=== PATIENT | female | born 1965 | race Caucasian/White ===

== ENCOUNTER 2016-09-26 08:27 | Day surgery (SDC) | payer OTHER ==
[~2016-09-26] VITALS: Ht 170.2 cm; Wt 81.0 kg
[2016-09-26] VITALS (10 sets, daily range): BP systolic 112–148; BP diastolic 62–81; PULSE 64–100; RESP 9–26; Ht 170.2 cm; Wt 81.0 kg
[~2016-09-26 08:27] MED LIST: LIDOCAINE 2% (SDV) 5 ML INJ ONE
[2016-09-26] MEDS ORDERED: CEFAZOLIN 1 GM/50 ML (PMX) 50 ML IVPB ONE (10:00)
[2016-09-26] MEDS ORDERED: SOD CHLORIDE 0.9% 1,000 ML IV ONE (10:00)
[2016-09-26 10:10] LABS: ADD SCAN DIFF NO
[2016-09-26 10:13] LABS: BASOPHILS % 0.9 % (0.0-2.0); EOSINOPHILS # 0.1 10^3/ul (0.0-0.5); EOSINOPHILS % 1.9 % (0.0-7.0); HEMATOCRIT 37.8 % (37.0-47.0); HEMOGLOBIN 12.3 g/dl (12.0-16.0); LYMPHOCYTES # 1.8 10^3/ul (0.8-2.9); LYMPHOCYTES % 42.5 % (15.0-51.0); MEAN CORPUSCULAR HGB CONC 32.5 g/dl (32.0-37.0); MEAN CORPUSCULAR VOLUME 89.2 fl (82.0-101.0); MEAN PLATELET VOLUME 12.6 fl (7.4-10.4); MONOCYTE # 0.3 10^3/ul (0.3-0.9); NEUTROPHIL # 2.1 10^3/ul (1.6-7.5); NEUTROPHILS % 47.5 % (39.0-77.0); PLATELET COUNT 232 10^3/UL (140-415); RED BLOOD COUNT 4.24 10^6/ul (4.20-5.40); RED CELL DISTRIBUTION WIDTH 13.4 % (11.5-14.5); WHITE BLOOD COUNT 4.3 10^3/ul (4.8-10.8)
[2016-09-26 10:18] LABS: INR 0.9; PROTIME 12.1 Sec (12.2-14.2); PT RATIO 0.9
[2016-09-26 10:22] LABS: BILIRUBIN,INDIRECT 0.2 mg/dl (0-1.1); BILIRUBIN,TOTAL 0.2 mg/dl (0.2-1.3)
[2016-09-26 10:23] LABS: ALBUMIN 4.9 g/dl (3.3-4.9); ALBUMIN/GLOBULIN RATIO 1.75; TOTAL PROTEIN 7.7 g/dl (6.1-8.1)
[2016-09-26 10:24] LABS: CALCIUM 9.4 mg/dl (8.4-10.2); CREATININE 0.62 mg/dl (0.44-1.00); POTASSIUM 4.1 mmol/L (3.5-5.1)
[2016-09-26] MEDS ORDERED: BUPIVACAINE 0.5%/EPI (SDV) 10 ML INJ ONE (11:08)
[2016-09-26] MEDS ORDERED: MIDAZOLAM 1 MG/ML 2 ML INJ ONE (11:16)
[2016-09-26] MEDS ORDERED: NEOSTIGMINE 3 MG/3 ML SYRINGE ONE (11:16)
[2016-09-26] MEDS ORDERED: ROCURONIUM 50 MG INJ ONE (11:16)
[2016-09-26] MEDS ORDERED: GLYCOPYRROLATE 0.4 MG INJ ONE (11:16)
[2016-09-26] MEDS ORDERED: PROPOFOL 20 ML ONE (11:16)
[2016-09-26] MEDS ORDERED: CEFAZOLIN 1 GM INJ ONE (11:16)
[2016-09-26] MEDS ORDERED: FENTAnyl 50 MCG/ML VIAL ONE (11:16)
[2016-09-26] MEDS ORDERED: DEXAMETHASONE 4 MG/ML 1 ML INJ ONE (11:17)
[2016-09-26] MEDS ORDERED: ONDANSETRON 4 MG INJ ONE (11:17)
[2016-09-26] MEDS ORDERED: SUGAMMADEX SODIUM 200 MG/2 ML VIAL IV ONE (11:55)
[2016-09-26] MEDS ORDERED: FENTAnyl 50 MCG/ML VIAL IV PRN ×3 (12:00)
[2016-09-26] MEDS ORDERED: MIDAZOLAM 1 MG/ML 2 ML INJ IV PRN (12:00)
[2016-09-26] MEDS ORDERED: EPHEDrine SULFATE 50 MG/5 ML SYG IV PRN (12:00)
[2016-09-26] MEDS ORDERED: MEPERIDINE 25 MG INJ IV PRN (12:00)
[2016-09-26] MEDS ORDERED: DIPHENHYDRAMINE 50 MG INJ IV PRN (12:00)
[2016-09-26] MEDS ORDERED: TRIMETHOBENZAMIDE 100 MG/ML VIAL IM PRN (12:00)
[2016-09-26] MEDS ORDERED: ONDANSETRON 4 MG INJ IV PRN (12:00)
[2016-09-26] MEDS ORDERED: HYDROmorphONE (0.2 MG/ML) 10ML SYG IV PRN ×3 (12:00)
[2016-09-26] MEDS ORDERED: hydrALAzine 20 MG INJ IV PRN (12:00)
[2016-09-26] MEDS ORDERED: LABETALOL HCL 20MG INJ IV PRN (12:00)
--- NOTE | 2016-09-26 12:25 | OPR ---
DATE OF OPERATION: 09/26/2016 PREOPERATIVE DIAGNOSIS: Malignant melanoma, left shoulder. POSTOPERATIVE DIAGNOSIS: Malignant melanoma, left shoulder. OPERATION PERFORMED: Wide local excision of malignant melanoma left shoulder with local skin flap a dvancement closure. ANESTHESIA: General. ANESTHESIOLOGIST: Dr. Sheehan. SURGEON: Boby Corral MD LIBRARY ATTENDANT: Eileen Nicholson MD INDICATIONS FOR PROCEDURE: The patient is a 51-year-old female who underwent a punch biopsy of a siddiqui spicious lesion on her left shoulder by her movie extra. The diagnosis of malignant melanoma was made with positive margins. She was sent for a surgical oncology referral. She was counseled as to the need for wide local excision with local skin flap advancement closure. She consented and was s cheduled for surgery. DESCRIPTION OF PROCEDURE: The patient was brought to the operating theater, placed under general an esthesia. The left shoulder was prepped and draped in the usual sterile fashion. A long elliptical incision was demarcated with marking pen, oriented in an oblique fashion to include an approximatel y 1 cm margin circumferentially around the lesion, then carried out with 15 blade scalpel. Subcutan eous tissue was dissected with cautery. The specimen was then elevated and transected including por tions of the subcutaneous tissue. It was then oriented and sent for permanent pathologic analysis. Due to the large defect, it was necessary to do local tissue flap creation to accomplish closure. This was done by mobilizing medial and lateral skin flaps. The skin flaps were then rotated togethe r, held in place with towel clamps and final skin approximation took place with 2-0 nylon sutures in vertical mattress fashion. The area was then infiltrated with 0.5% Marcaine local anesthetic with epinephrine, and a sterile dressing was applied. The patient tolerated the procedure well. Estimat ed blood loss was 10 mL. There were no complications and the patient was transported in [facility] to the recovery room. Dictated By: BOBY CORRAL MD TL/ADEN Conf#: [id number] DID#: [id number]
== END 2016-09-26 14:15 | disposition home or self-care (01) ==
LOC: SDS 08:27
PROVIDERS: ATTEND Surgery Surgical Oncology
DX: L90.5 Scar conditions and fibrosis of skin (principal); L57.8 Other skin changes due to chronic exposure to nonionizing radiation; Z85.820 Personal history of malignant melanoma of skin
CPT/HCPCS: 14000; 80053; 84703; 85025; 85610; 85730; 88307; J0690; J1100; J1200; J2250; J2405; J3010; Z7512; Z7610; J2710

== ENCOUNTER 2017-09-08 08:22 | Day surgery (SDC) | END 2017-09-08 15:12 | disposition home or self-care (01) ==